=== PATIENT | female | born 1950 | race Asian ===

== ENCOUNTER 2018-01-10 19:42 | Emergency (ER) | payer MEDICAID ==
[~2018-01-10] VITALS: Ht 152.4 cm; Wt 45.4 kg
[2018-01-10 19:47] VITALS: BP_SYST 140
[2018-01-10] MEDS ORDERED: KETOROLAC TROMETHAMINE 30 MG VIAL IVP ONE (20:15)
[2018-01-10] MEDS ORDERED: GLUCAGON,HUMAN RECOMBINANT 1 MG VIAL IVP ONE (20:15)
[2018-01-10] MEDS ORDERED: MAG HYDROX/AL HYDROX/SIMETH 30 ML, BELLADONNA ALKALOIDS/PHENOBARB 10 ML, LIDOCAINE VISC... PO ONE ×3 (20:30)
[2018-01-10 21:25] VITALS: BP_SYST 131
== END 2018-01-10 21:25 | disposition home or self-care (01) ==
LOC: SED 19:42
DX: T18.128A Food in esophagus causing other injury, initial encounter (principal); R03.0 Elevated blood-pressure reading, without diagnosis of hypertension; X58.XXXA Exposure to other specified factors, initial encounter; Y93.89 Activity, other specified; Y92.89 Other specified places as the place of occurrence of the external cause; Y99.8 Other external cause status
CPT/HCPCS: 70360; 96374; 96375; 99284; J1610; J1885; J2001